=== PATIENT | male | born 1985 | race Caucasian/White ===

== ENCOUNTER 2024-01-16 17:31 | Emergency (ER) | payer OTHER, SELFPAY ==
[~2024-01-16 17:31] MED LIST: Iopamidol 370 76% 100 ML VIAL ONE
[2024-01-16] MEDS ORDERED: Famotidine/PF 20 mg/2ml Vial ONE (18:13)
[2024-01-16] MEDS ORDERED: Ondansetron PF 4 MG/2 ML Vial ONE (18:13)
[2024-01-16] MEDS ORDERED: Sodium Chloride 0.9% 1,000 ML ONE (18:13)
[2024-01-16] MEDS ORDERED: Morphine 2 MG/ML VIAL ONE (18:13)
[2024-01-16 18:14] LABS: #Eosinphils 0.1 thou/uL (0.0-0.7); #Monocytes 0.4 thou/uL (0.11-0.59); #Neutrophils 5.1 thou/uL (1.40-6.50); %Basophils 0.5 % (0.0-1.0); %Eosinophils 1.5 % (0.0-10.0); %Lymphocytes 26.2 % (21.0-51.0); %Monocytes 5.3 % (0.0-10.0); %Neutrophils 66.6 % (42.0-75.0); Hematocrit 45.5 % (42.0-52.0); Hemoglobin 14.9 g/dL (14.0-18.0); Mean Corpuscular HGB CONC 32.7 g/dL (32.0-36.0); Mean Corpuscular Hemoglobin 31.2 pg (27.0-31.0); Mean Corpuscular Volume 95.3 fl (78.0-98.0); Mean Platelet Volume 9.7 fL (7.4-10.4); Platelet Count 260 10x3/uL (130-400); RBC Distribution Width 13.4 % (11.5-14.5); Red Blood Cell (RBC) Count 4.77 mill/uL (4.70-6.10); White Blood Cell (WBC) Count 7.7 10x3/uL (4.8-10.8)
[2024-01-16 18:30] LABS: Bacteria/HPF None Seen HPF (None Seen); Bilirubin Negative (Negative); Blood, Urine Negative (Negative); CAUTI Indications for Culture Pelvic or flank pain; Clarity Clear (Clear); Glucose, Urine (Dipstick) Negative (Negative); Ketone, Urine Negative (Negative); Leukocyte Negative (Negative); Nitrite Negative (Negative); Protein, Urine (Dipstick) Negative (Neg-Trace); RBC/HPF None Seen HPF (0-3); Specific Gravity, Urine 1.015 (1.005-1.030); Squamous Epithelial None Seen HPF (0-3); Urobilinogen 0.2 mg/dL (Less than 2); WBC/HPF None Seen HPF (0-3)
[2024-01-16 18:31] LABS: Urine Culture Reflex No No
[2024-01-16] MEDS ORDERED: Ibuprofen 200 MG TAB ONE (18:31)
[2024-01-16 18:34] LABS: ALT (SGPT) 13 U/L (8-55); AST (SGOT) 12 U/L (5-34); Albumin 4.1 g/dL (3.5-5.0); Alkaline Phosphatase 53 U/L (40-110); Anion Gap 11 mmol/L (10-20); BUN (Urea Nitrogen) 7 mg/dL (8.9-20.6); Bilirubin, Total 0.6 mg/dL (0.2-1.2); Calc. Creatinine Clearance 0 mL/min (70-130); Calcium 8.9 mg/dL (7.8-10.44); Carbon Dioxide 29 mmol/L (22-29); Chloride 100 mmol/L (98-107); Estimated GFR 105; Globulin 2.6 g/dL (2.4-3.5); Glucose 103 mg/dL (70-105); Lipase 11 U/L (8-78); Protein, Total 6.7 g/dL (6.0-8.3); Sodium 136 mmol/L (136-145)
[2024-01-16] MEDS ORDERED: HYDROcodone/Acetaminophen 10/325 mg Tablet ONE (19:39)
[2024-01-16] MEDS ORDERED: Sucralfate 1 GM TAB ONE (19:39)
[2024-01-16] MEDS ORDERED: Clindamycin 150 MG CAP ONE (19:39)
== END 2024-01-16 19:49 | disposition home or self-care (01) ==
LOC: NAV ERS 17:31
DX: K08.89 Other specified disorders of teeth and supporting structures (principal); K29.00 Acute gastritis without bleeding; K21.9 Gastro-esophageal reflux disease without esophagitis
CPT/HCPCS: 36415; 74177; 80053; 81001; 83690; 85025; 93005; 96374; 96375; J2272; J2405; J7050; Q9967; S0028

== ENCOUNTER 2024-08-22 18:39 | Emergency (ER) | payer OTHER ==
[2024-08-22] MEDS ORDERED: levETIRAcetam 500 MG TAB ONE (19:10)
== END 2024-08-22 19:20 | disposition home or self-care (01) ==
LOC: NAV ERS 18:39
DX: G40.909 Epilepsy, unspecified, not intractable, without status epilepticus (principal); F41.9 Anxiety disorder, unspecified
CPT/HCPCS: 99283